=== PATIENT | female | born 1940 | race Caucasian/White ===

== ENCOUNTER 2017-04-22 08:46 | Outpatient (CLI) | payer MEDICARE, OTHER ==
--- NOTE | 2017-04-23 17:36 | Mammography Report ---
DIGITAL SCREENING MAMMOGRAM: 04/22/2017 CLINICAL INDICATION: A 77-year-old for screening. COMPARISON: 08/2015, 02/2014, 11/2012, 06/2011, 02/2010, 09/2008. TECHNIQUE: Routine CC and MLO projections were obtained of the breasts. The breasts again demonstrate scattered fibroglandular densities bilaterally. Punctate, typically be nign calcifications and intramammary lymph nodes are stable. No suspicious masses, clustered microca lcifications, or regions of architectural distortion are identified. IMPRESSION: BENIGN FINDINGS. RECOMMENDATION: ROUTINE ANNUAL SCREENING UNLESS OTHERWISE CLINICALLY INDICATED. BIRADS CATEGORY: 2, BENIGN FINDINGS. STANDARD QUALIFYING STATEMENTS 1. This examination was reviewed with the aid of Computed-Aided Detection (CAD). 2. A negative or benign imaging report should not delay biopsy if clinically suspicious findings are present. Consider surgical consultation if warranted. More than 5% of cancers are not identified b y imaging. 3. Dense breasts may obscure an underlying neoplasm. JOB #: [id number] EXT JOB #:[id number]
== END 2017-04-22 08:47 | disposition home or self-care (01) ==
LOC: DI 08:46
PROVIDERS: ATTEND Family Medicine
DX: Z12.31 Encounter for screening mammogram for malignant neoplasm of breast (principal)
CPT/HCPCS: 77067

== ENCOUNTER 2017-10-07 12:48 | Emergency (ER) | payer MEDICARE, OTHER ==
--- NOTE | 2017-10-07 13:09 | ED Physician Documentation ---
PD HPI FOCAL NEURO - Stated complaint Stated Complaint: SYNCOPE - Chief complaint Chief Complaint: Neuro - History obtained from History obtained from: Patient, Family, EMS - History of Present Illness Timing - onset: Other (About 20 minutes ago she developed a severe sudden onset headache and then had a near syncopal episode. She is not responding appropriately and most of the history is from the . She does not have a history of headaches. She does have a history of atrial fibrillation but is not currently maintained on any anticoagulation.) Review of Systems Unable to obtain: Confused PD PAST MEDICAL HISTORY - Past Medical History Past Medical History: Yes Cardiovascular: Hypertension, High cholesterol, Atrial fibrillation, Arrhythmia Respiratory: Asthma Endocrine/Autoimmune: None GI: Colon polyps : Incontinence HEENT: None Psych: None, Anxiety, Panic attacks, Claustrophobia Musculoskeletal: None Derm: Other - Past Surgical History Past Surgical History: Yes General: Appendectomy, Colonoscopy Ortho: Spine surgery HEENT: Tonsil/Adenoidectomy - Present Medications Home Medications: Ambulatory Orders Medication Instructions Recorded Confirmed Beclomethasone Dipropionate [Qvar] 8.7 gm IH BID 08/26/13 03/22/15 Budesonide [Pulmicort] 0.25 mg INH TID 08/26/13 03/22/15 diltiaZEM [Cardizem] 60 mg PO DAILY 08/26/13 03/22/15 - Allergies Allergies/Adverse Reactions: Allergies Allergy/AdvReac Type Severity Reaction Status Date / Time No Known Drug Allergies Allergy Verified 10/07/17 13:02 - Social History Does the pt smoke?: No Smoking Status: Never smoker Does the pt drink ETOH?: No Does the pt have substance abuse?: No PD ED PE NORMAL - Vitals Vital signs reviewed: Yes - General General: Other (She is somnolent but arousable by voice, she thinks she is in her living room and is not answering questions appropriately.) - HEENT HEENT: Other (Small pupils, right gaze preference and does not look to the left , she has extinction when I hold her left hand in front of her face saying it is my hand.) - Neck Neck: Supple, no meningeal sign, No bony TTP - Cardiac Cardiac: RRR, No murmur - Respiratory Respiratory: No respiratory distress, Clear bilaterally - Abdomen Abdomen: Normal bowel sounds, Soft, Non tender - Back Back: No CVA TTP, No spinal TTP - Derm Derm: Normal color, Warm and dry - Neuro Neuro: Other (She is alert but disoriented, she does not respond to threat on the left nor does she respond to painful stimulus on the left. She has hemineglect and hemiextinction on the left.) - Psych Psych: Normal mood, Normal affect Results - Vitals Vitals: Vital Signs - 24 hr 10/07/17 10/07/17 10/07/17 12:52 13:00 13:12 Temperature 35.7 C L Heart Rate 78 78 34 L Respiratory 16 16 Rate Blood Pressure 194/88 H 151/70 H O2 Saturation 95 95 10/07/17 10/07/17 10/07/17 13:18 13:34 14:04 Temperature Heart Rate 78 75 85 Respiratory 18 16 22 Rate Blood Pressure 123/85 H 170/67 H O2 Saturation 99 99 98 Oxygen O2 Source Nasal cannula - EKG (time done) 1257 Rate: Rate (enter#) (74) Rhythm: NSR [place]: LAD Intervals: Normal SC QRS: Normal Ischemia: Normal ST segments Computer interpretation: Agree with computer - Labs Labs: Laboratory Tests 10/07/17 10/07/17 10/07/17 13:00 13:00 13:00 WBC 11.9 H RBC 4.64 Hgb 13.6 Hct 40.3 MCV 86.8 MCH 29.3 MCHC 33.7 RDW 14.0 Plt Count 335 MPV 9.5 Neut # 9.4 H Lymph # 2.3 Dickinson # 0.2 Eos # 0.0 Baso # 0.0 Absolute Nucleated RBC 0.00 Nucleated RBC % 0.0 PT 11.4 INR 1.0 Sodium 135 Potassium 4.0 Chloride 101 Carbon Dioxide 21 Anion Gap 13.0 BUN 18 Creatinine 0.6 Estimated GFR (MDRD) 97 Glucose 154 H Calcium 9.4 Magnesium 1.9 Total Bilirubin 0.4 AST 25 ALT 20 Alkaline Phosphatase 88 Total Protein 7.6 Albumin 4.0 Globulin 3.6 Albumin/Globulin Ratio 1.1 Lipase 19 L - Rads (name of study) CT Head Radiology: EMP read contemporaneously (Acute intracranial hemorrhage with a large right parietal parenchymal hematoma, smaller right occipital, lateral right subdural and small subarachnoid hemorrhage with 13 mm of right to left shift and generalized edema.) PD MEDICAL DECISION MAKING - ED course ED course: 77-year-old woman who is relatively healthy, history of atrial fibrillation currently in normal sinus rhythm and not anticoagulated per the presents with an acute concerning headache and left-sided deficits and found to have subarachnoid/subdural and intraparenchymal hemorrhage on CT and 13mm R to left shift. Confirmed full CODE STATUS and aggressive care at this point with the although this may be a devastating neurologic injury. She was accepted by Dr. Martinez to [facility] at approximately 1:25 PM and prior to that airlift was mobilized. She was loaded with 1 g of Keppra IV and started on a nicardipine drip for uncontrolled blood pressures. She was also administered 375 mL of 20% mannitol equaling about 75 g. - Critical Care Time(min): 45 Time Includes: Direct patient care, Review records, Reassess patient, Document care, Coordinate care, Medical consult, Family consult for tx dec Data interpretation: Labs, Pulse ox Procedures included in critical care time: Peripheral IV Procedures excluded from critical care time: EKG Departure - Departure Disposition: 02 Transfer Acute Care Hosp Clinical Impression: Intracranial hemorrhage Condition: Critical
[2017-10-07] MEDS ORDERED: SODIUM CHLORIDE 0.9% 1,000 ML IV ONE (13:10)
[2017-10-07 13:21] LABS: PT - PROTHROMBIN TIME 11.4 secs (9.9-12.6)
[2017-10-07] MEDS ORDERED: niCARdipine 20 MG/200 ML 20 MG/200 ML BAG IV STA (13:24)
[2017-10-07] MEDS ORDERED: levETIRAcetam INJ 1,000 MG in SODIUM CHLORIDE 0.9% 100ML 100 ML IV STA (13:24)
[2017-10-07 13:26] LABS: ALBUMIN/GLOBULIN RATIO 1.1 (1.0-2.2); BILIRUBIN,TOTAL 0.4 mg/dL (0.2-1.0); CALCIUM 9.4 mg/dL (8.5-10.3); CREATININE 0.6 mg/dL (0.4-1.0); MAGNESIUM 1.9 mg/dL (1.7-2.8); TOTAL PROTEIN 7.6 g/dL (6.7-8.2)
[2017-10-07] MEDS ORDERED: MANNITOL 20% 500 ML BAG IV ONE (13:26)
[2017-10-07 13:27] LABS: BASOPHILS % (AUTO) 0.1 %; HGB - HEMOGLOBIN 13.6 g/dL (12.0-16.0); LYMPHOCYTES # (AUTO) 2.3 10^3/uL (1.5-3.5); LYMPHOCYTES % (AUTO) 19.1 %; MEAN CORPUSCULAR HEMOGLOBIN 29.3 pg (27.0-31.0); MEAN CORPUSCULAR HGB CONC 33.7 g/dL (32.0-36.0); MEAN CORPUSCULAR VOLUME 86.8 fL (81.0-99.0); MEAN PLATELET VOLUME 9.5 fL (7.9-10.8); MONOCYTES # (AUTO) 0.2 10^3/uL (0.0-1.0); MONOCYTES % (AUTO) 1.8 %; NEUTROPHILS # (AUTO) 9.4 10^3/uL (1.5-6.6); PLT - PLATELET COUNT 335 10^3/uL (130-450); RED BLOOD COUNT 4.64 10^6/uL (4.20-5.40); WHITE BLOOD COUNT 11.9 x10^3/uL (4.8-10.8)
--- NOTE | 2017-10-07 13:34 | CT Report ---
EXAM: CT HEAD EXAM DATE: 10/07/2017 01:23 PM. CLINICAL HISTORY: Severe NELSON and L weak. COMPARISON: None. TECHNIQUE: Multiaxial CT images were obtained from the foramen magnum to the vertex. Reformats: Coron al. IV contrast: None. In accordance with CT protocol optimization, one or more of the following dose reduction techniques w ere utilized for this exam: automated exposure control, adjustment of mA and/or KV based on patient s ize, or use of iterative reconstructive technique. FINDINGS: Parenchyma: There is a hyperdense parenchymal hemorrhage in the right parietal lobe measuring 55 x 34 x 53 mm. There is surrounding edema. There is an adjacent smaller right occipital lobe parenchymal h emorrhage measuring 13 x 13 x 17 mm. There is generalized edema located in the right frontal and dexter etal lobe. There is 13 mm of [id number] midline shift. There is anterior right to left subfalcine herniation. There is a small amount of subarachnoid hemorrhage within the medial right frontal lobe a nd right parietal lobe. Extraaxial Spaces: There is a subdural hematoma along the lateral right cerebral convexity measuring up to 10 mm in thickness. There is a small amount of subdural hemorrhage along the midline falx. Ventricles: The right lateral ventricle appears compressed. Ventricles are deviated to the left. Sinuses and Orbits: Imaged paranasal sinuses, orbits, and mastoids show no significant abnormality. Bones: No evidence of fracture or calvarial defect. Other: None. IMPRESSION: 1. Positive for intracranial acute hemorrhage. Large right parietal parenchymal hematoma with smaller right occipital lobe parenchymal hemorrhage. Lateral right cerebral subdural hematoma measuring 10 m m in thickness. Small subarachnoid hemorrhage. 2. Generalized edema in the right frontal and parietal lobe with 13 mm of [id number] midline shift . RADIA The above critical findings were discussed with Blayne by Dr. Niles Smith at 13:32 hrs on 10/07/17. Referring Provider Line: [phone] SITE ID: [id number]
[2017-10-07] MEDS ORDERED: MANNITOL 20% IV ONE (14:00)
[2017-10-07 14:05] VITALS: BP 170/67
== END 2017-10-07 14:27 | disposition short-term general hospital (02) ==
LOC: ED 12:48
DX: I60.9 Nontraumatic subarachnoid hemorrhage, unspecified (principal); I62.00 Nontraumatic subdural hemorrhage, unspecified; I48.91 Unspecified atrial fibrillation; I10 Essential (primary) hypertension; I49.9 Cardiac arrhythmia, unspecified; J45.909 Unspecified asthma, uncomplicated; Z86.010 Personal history of colon polyps
CPT/HCPCS: 36415; 70450; 80053; 83690; 83735; 85025; 85610; 93005; 96365; 96375; 99284; 99291